=== PATIENT | female | born 1980 | race Caucasian/White ===

== ENCOUNTER 2017-03-25 21:55 | Emergency (ER) | payer MEDICAID ==
[~2017-03-25] VITALS: Ht 165.1 cm; Wt 108.6 kg
[2017-03-25] MEDS ORDERED: KETOROLAC 30 MG/1 ML ONE (22:57)
[2017-03-25] MEDS ORDERED: METHOCARBAMOL 750 MG TABLET ONE (22:57)
[2017-03-25] MEDS ORDERED: KETOROLAC 30 MG/1 ML IM ONE (23:00)
[2017-03-25] MEDS ORDERED: METHOCARBAMOL 750 MG TABLET PO ONE (23:00)
[2017-03-25 23:24] LABS: PATH.CAST-FLAG NOT PRESENT; SPERM-FLAG NOT PRESENT; SRC-FLAG NOT PRESENT; XTAL-FLAG NOT PRESENT; YLC-FLAG NOT PRESENT
[2017-03-25 23:29] LABS: HCG UR OBC PASS
[2017-03-25 23:32] LABS: HEMATOCRIT 39.4 % (34.6-47.8); HEMOGLOBIN 13.1 g/dL (11.7-16.4); WHITE BLOOD COUNT 8.2 x10^3/uL (3.4-10)
[2017-03-25 23:41] LABS: ASPARTATE AMINO TRANSFERASE 29 U/L (15-37); BLOOD UREA NITROGEN 11 mg/dL (7-18)
[2017-03-26 00:42] VITALS: BP 111/68
== END 2017-03-26 00:43 | disposition home or self-care (01) ==
LOC: ED 23:59
DX: S39.011A Strain of muscle, fascia and tendon of abdomen, initial encounter (principal); W01.0XXA Fall on same level from slipping, tripping and stumbling without subsequent striking against object, initial encounter; Y93.89 Activity, other specified; Y99.8 Other external cause status; Y92.512 Supermarket, store or market as the place of occurrence of the external cause
CPT/HCPCS: 36415; 76700; 80053; 81003; 81025; 83690; 85025; 96372; 99285; J1885

== ENCOUNTER 2017-10-16 16:59 | Emergency (ER) | payer MEDICAID ==
[~2017-10-16] VITALS: Ht 170.2 cm; Wt 100.3 kg
[2017-10-16] MEDS ORDERED: KETOROLAC 30 MG/1 ML ONE (18:35)
[2017-10-16] MEDS ORDERED: ONDANSETRON ODT 4 MG ONE (18:35)
[2017-10-16] MEDS ORDERED: ONDANSETRON ODT 4 MG PO ONE (19:00)
[2017-10-16] MEDS ORDERED: KETOROLAC 30 MG/1 ML IM ONE (19:00)
[2017-10-16 20:16] VITALS: BP 117/43
== END 2017-10-16 20:19 | disposition home or self-care (01) ==
LOC: ED 18:46
DX: G44.219 Episodic tension-type headache, not intractable (principal); L73.9 Follicular disorder, unspecified; G43.909 Migraine, unspecified, not intractable, without status migrainosus
CPT/HCPCS: 96372; 99283; J1885; Q0162

== ENCOUNTER 2018-05-17 22:18 | Emergency (ER) | payer MEDICAID ==
[~2018-05-17] VITALS: Ht 172.7 cm; Wt 105.2 kg
[2018-05-17 22:20] VITALS: BP 106/62
[2018-05-17] MEDS ORDERED: IBUPROFEN 200 MG TABLET ONE (22:46)
[2018-05-17] MEDS ORDERED: ACETAMINOPHEN 500 MG TABLET ONE (22:46)
[2018-05-17 22:56] LABS: BASOPHILS # (AUTO) 0.04 x10^3/uL (0-0.1); BASOPHILS % (AUTO) 0 % (0-1); EOSINOPHILS # (AUTO) 0.09 x10^3/uL (0-0.4); EOSINOPHILS % (AUTO) 1 % (1-7); LYMPHOCYTES # (AUTO) 4.38 x10^3/uL (1-3.4); LYMPHOCYTES % (AUTO) 40 % (22-44); MD NO; MEAN CORPUSCULAR HEMOGLOBIN 26.1 pg (27.0-34.8); MEAN CORPUSCULAR HGB CONC 32.8 g/dL (32.4-35.8); MEAN CORPUSCULAR VOLUME 79.5 fL (80-100); MEAN PLATELET VOLUME 9.6 fL (7.4-10.4); MONOCYTES # (AUTO) 0.64 x10^3/uL (0.2-0.8); MONOCYTES % (AUTO) 6 % (2-9); NEUTROPHILS # (AUTO) 5.78 x10^3/uL (1.8-6.8); NEUTROPHILS % (AUTO) 53 % (42-75); PLATELET COUNT 296 x10^3/uL (130-400); RED BLOOD COUNT 4.15 x10^6/uL (3.82-5.3); RED CELL DISTRIBUTION WIDTH 16.1 % (9.6-15.2)
[2018-05-17] MEDS ORDERED: IBUPROFEN 200 MG TABLET PO ONE (23:00)
[2018-05-17] MEDS ORDERED: ACETAMINOPHEN 500 MG TABLET PO ONE (23:00)
[2018-05-17] MEDS ORDERED: LIDOCAINE 1%-EPI 1:100K, 20ML ONE (23:14)
[2018-05-17 23:29] LABS: ALBUMIN 3.3 g/dL (3.4-5.0); ANION GAP 9 mmol/L (5-15); CALCIUM 8.1 mg/dL (8.5-10.1); CHLORIDE 109 mmol/L (98-107)
[2018-05-17] MEDS ORDERED: LIDOCAINE 1%-EPI 1:100K, 20ML SQ ONE (23:30)
== END 2018-05-18 00:28 | disposition home or self-care (01) ==
LOC: ED 22:39
DX: N75.1 Abscess of Bartholin's gland (principal)
CPT/HCPCS: 36415; 56420; 80048; 82040; 84702; 85025; 99284